=== PATIENT | male | born 1990 | race Caucasian/White ===

== ENCOUNTER 2019-01-01 14:52 | Emergency (ER) | payer OTHER ==
--- NOTE | 2019-01-01 14:55 | PDOC ---
History of Present Illness - General History Source: Patient Exam Limitations: No Limitations - History of Present Illness Initial Comments: 01/01/19 15:14 The patient is a 28 year old male, with a significant PMH of migraines, who presents to the emergency department complaining of migraines that began a few weeks ago. The patients states the migraines are intermittent and notes pain starts from the right side of the head radiating down the neck. He also endorses associated symptoms of blurred vision. The patient states he sometimes smokes marijuana to alleviate the pain. Denies any recent head trauma, falls, or accident. Denies any numbness or tingling.The patient denies chest pain, shortness of breath and dizziness. Allergies: NKDA Past surgical history: None reported Social history: Smokes marijuana but denies any alcohol use. PCP: None reported <Mirian Jacques - Last Filed: 01/01/19 15:14> <Gerardo Campa - Last Filed: 01/01/19 16:33> - General Chief Complaint: Headache Stated Complaint: HEADACHE Time Seen by Provider: 01/01/19 14:55 Past History <Mirian Jacques - Last Filed: 01/01/19 15:14> <Gerardo Campa - Last Filed: 01/01/19 16:33> - Past Medical History Allergies/Adverse Reactions: Allergies Allergy/AdvReac Type Severity Reaction Status Date / Time No Known Allergies Allergy Verified 01/01/19 14:55 Home Medications: Ambulatory Orders Ibuprofen [Advil -] 400 mg PO ONCE 01/01/19 Review of Systems - Review of Systems Able to Perform ROS?: Yes Comments:: 01/01/19 15:15 CONSTITUTIONAL: Absent: fever, no chills, no fatigue EYES: Present: +Blurred Vision ENT: Absent: ear pain, no sore throat CARDIOVASCULAR: Absent: chest pain, no palpitations RESPIRATORY: Absent: cough, no SOB GI: Absent: abdominal pain, no nausea, no vomiting, no constipation, no diarrhea GENITOURINARY: Absent: dysuria, no frequency, no hematuria MUSKULOSKELETAL: Absent: back pain, no arthralgia, no myalgia SKIN: Absent: rash NEURO: Present: + headache <Mirian Jacques - Last Filed: 01/01/19 15:14> *Physical Exam - Vital Signs Last Vital Signs Temp Pulse Resp BP Pulse Ox 98.5 F 88 20 131/73 100 01/01/19 14:53 01/01/19 14:53 01/01/19 14:53 01/01/19 14:53 01/01/19 14:53 - Physical Exam Comments: 01/01/19 15:17 GENERAL: Well-appearing, well-nourished. No apparent distress. HEENT: Normocephalic, atraumatic. PERRL, EOM intact. CARDIOVASCULAR: Normal S1, S2. Regular rate and rhythm. PULMONARY: Clear to auscultation bilaterally. ABDOMEN: Soft, non-distended, non-tender. EXTREMITIES: Normal ROM in all four extremities. No gross deformities. SKIN: Warm, dry. No rash NEUROLOGICAL: No focal neurological deficits <Mirian Jacques - Last Filed: 01/01/19 15:14> Medical Decision Making - Medical Decision Making 01/01/19 15:48 Patient gives a history of recurrent headaches almost weekly for several years, preventing him from employment. He prefers not to use medication. He has never seen a neurologist or attended a headache clinic. Physical exam is normal including benign fundi, normal neurological, normal gait , and healthy appearance. Patient much improved after treatment. Headache is resolved. Neurological exam remains normal. It was strongly recommend that he attend a headache clinic with regular neurological reevaluation. 01/01/19 16:32 <Gerardo Campa - Last Filed: 01/01/19 16:33> *DC/Admit/Observation/Transfer - Attestations Scribe Attestion: 01/01/19 15:17 Documentation prepared by Mirian Jacques, acting as medical pathologist for Gerardo Hancock MD. <Mirian Jacques - Last Filed: 01/01/19 15:14> - Discharge Dispostion Decision to Admit order: No <Gerardo Campa - Last Filed: 01/01/19 16:33> Diagnosis at time of Disposition: Headache Qualifiers: Headache type: unspecified Headache chronicity pattern: episodic headache Intractability: not intractable Qualified Code(s): R51 - Headache - Discharge Dispostion Disposition: HOME Condition at time of disposition: Improved - Referrals Referrals: Joseph Ruiz DO [Staff Physician] - 1 week - Patient Instructions Printed Discharge Instructions: DI for Migraine Additional Instructions: A good resource as the headache clinic at [facility] [phone]
[2019-01-01] MEDS ORDERED: KETOROLAC TROMETHAMINE 60 MG/2 ML VIAL IM ONE (15:05)
[2019-01-01] MEDS ORDERED: hydrOXYzine PAMOATE 25 MG CAPSULE (FP) PO ONE ×2 (15:05→15:13)
[2019-01-01] MEDS ORDERED: KETOROLAC TROMETHAMINE 60 MG/2 ML VIAL ONE (15:14)
[2019-01-01 15:21] VITALS: BP 131/73; PULSE 88; TEMP 98.5; BMI 23.8
== END 2019-01-01 16:09 | disposition home or self-care (01) ==
LOC: FER 14:52
PROC: 3E0233Z Introduction of Anti-inflammatory into Muscle, Percutaneous Approach (ICD-10-PCS; principal; 2019-01-01)
DX: R51 Headache (principal)
CPT/HCPCS: 99281-25